=== PATIENT | female | born 1945 | race Caucasian/White ===

== ENCOUNTER 2020-09-08 09:36 | Day surgery (SDC) | payer MEDICARE, BC ==
[~2020-09-08] VITALS: Ht 165.1 cm; Wt 66.8 kg
[2020-09-08 10:14] LABS: BASOPHILS 0.7 % (0-2); EOSINOPHILS 2.6 % (0-7); HEMATOCRIT 32.8 % (36.0-48.0); HEMOGLOBIN 10.1 g/dL (12-16); IMMATURE GRANULOCYTES 0.2 % (0-5); LYMPHOCYTE ABS# 1.46 10x3/uL (1.18-3.74); LYMPHOCYTES 24.9 % (15-50); MCH 27.3 pg (26.0-34.0); MCHC 30.8 g/dL (31.0-37.0); MCV 88.6 fL (80.0-100.0); MEAN PLATELET VOLUME 12.5 fL (7.4-10.4); MONOCYTES 11.4 % (2-11); NEUTROPHIL ABS# 3.53 10x3/uL (1.56-6.13); NEUTROPHILS 60.2 % (40-80); PLATELET COUNT 204 10x3/uL (130-400); RDW 14.5 % (11.5-14.5); WBC 5.9 10x3/uL (4.8-10.8)
[2020-09-08] MEDS ORDERED: HYDROCHLOROTHIA25 MG PO (10:16)
[2020-09-08] MEDS ORDERED: TOPROL XL50 MG PO (10:16)
[2020-09-08] MEDS ORDERED: NORVASC5 MG PO (10:16)
[2020-09-08] MEDS ORDERED: SYNTHROID50 MCG PO (10:17)
[2020-09-08] MEDS ORDERED: CARAFATE1 G PO (10:17)
[2020-09-08] MEDS ORDERED: MIRALAX17 GM PO (10:18)
[2020-09-08] MEDS ORDERED: ZOFRAN ODT4 MG/UDTAB PO (10:18)
[2020-09-08] MEDS ORDERED: OMEPRAZOLE40 MG PO (10:18)
[2020-09-08] MEDS ORDERED: CETIRIZINE HCL5 M1 (10:19)
[2020-09-08 10:23] VITALS: BP 135/55; Ht 165.1 cm; Wt 66.8 kg
[2020-09-08 10:37] LABS: ALBUMIN 3.7 g/dL (3.4-5.0); ANION GAP 12.9 mmol/L (8-16); BILIRUBIN - TOTAL 0.9 mg/dL (0.2-1.3); CALCIUM 9.3 mg/dL (8.5-10.1); CARBON DIOXIDE 30.4 mmol/L (21.0-32.0); CREATININE - SERUM 0.8 mg/dL (0.6-1.3); POTASSIUM - SERUM 3.3 mmol/L (3.5-5.1); PROTEIN - SERUM 7.6 g/dL (6.4-8.2)
--- NOTE | 2020-09-08 12:40 | NUR ---
1215 PT IS NPO UNTIL AFTER PCXR RESULTS
--- NOTE | 2020-09-08 12:53 | NUR ---
1253 PT'S [employer] HAS BEEN CONTACTED WITH AN UPDATE.
--- NOTE | 2020-09-08 14:27 | NUR ---
1335 RESULTS FROM XRAY GIVEN TO DR TRAYLOR WHO STATES PT MAY DRINK AND BE DISCHARGED HOME. 1355 PT VOIDED WITHOUT DIFFICULTY. VSS. DENIES PAIN. TOLERATING A CUP OF WATER WITHOUT NAUSEA OR EMESIS. 1403 PT IS DRESSED. DISCHARGE INSTRUCTIONS REVIEWED [facility] PT WHO VOICES UNDERSTANDING OF INSTRUCTIONS. IV WAS DC'D AT 1349. CATHETER TIP INTACT. NO BLEEDING AT SITE. COBAN DRESSING APPLIED.
--- NOTE | 2020-10-26 16:10 | OP ---
PATIENT NAME: VALERIA GOODSON MEDICAL RECORD: [id number] :44 LOCATION:D.OPS ADMISSION DATE: SURGEON: ROSANA TRAYLOR MD DATE OF OPERATION: 09/08/2020 PREOPERATIVE DIAGNOSIS: Multiple gastric polyps, some of which appear to have bled recently. POSTOPERATIVE DIAGNOSIS: Multiple gastric polyps, some of which appear to have bled recently. PROCEDURE: 1. Esophagogastroduodenoscopy with antral and distal esophageal biopsies. The antral biopsies were to rule out H pylori. The distal esophageal biopsies were to rule out Jacobo esophagus. 2. Snare gastric polypectomies x6. 3. Hot biopsy forceps polypectomy x1. 4. Argon plasma coagulation ablation of 46 smaller gastric polyps, which did not require biopsy. SURGEON: Dr. Traylor. MANAGER CHANNEL: None. BLOOD LOSS: Minimal. ANESTHESIA: IV sedation. COMPLICATIONS: None. The risks, possible complications, and alternatives to the procedure were explained to the patient. She elects to proceed. OPERATIVE COURSE: The patient was conveyed to the endoscopy suite electively on 09/08/2020. IV sedation was induced by the anesthesia staff. A bite block was inserted. A gastroscope was inserted into the mouth. It was advanced easily into the hypopharynx. Esophagus was easily intubated as were the stomach and duodenum. Upon withdrawal, retroflexed and angulus views were obtained. Antral biopsies were obtained. Distal esophageal biopsies were obtained. I then performed snare polypectomy of the 6 largest pedunculated polyps. Some of these had what appeared to be adenomas tips on them. All were removed utilizing the coagulation setting. These were grasped with an endoscopic retrieval net and withdrawn out through the mouth. I then reintroduced the gastroscope into the mouth and advanced easily down the esophagus into the stomach. There was one more polyp that I wanted to remove and it was removed utilizing the hot biopsy forceps polypectomy technique. There were a number of smaller polyps, all smaller than a centimeter, and I felt that these could be adequately ablated with the argon plasma slab puller without biopsying them. Utilizing the gastrics heading in the forced mode, I performed a thorough ablation of all 46 polyps. I irrigated. There was no bleeding. The gastroscope was then withdrawn under direct vision. OPERATIVE REPORT [id number] VALERIA GOODSON I will see the patient back in my office in 2-3 weeks. I do not think we need to schedule another endoscopic procedure; however, if she develops anemia or melena, then that would be another indication for another upper endoscopy. TRANSINT:[id number] Voice Confirmation ID: [id number] DOCUMENT ID: [id number] ROSANA TRAYLOR MD at 1610 CC: [id number] DICTATION DATE: 10/25/20 1634 PAPER [employer]E MAKER: 10/26/20 0010 [facility] 09/08/[address] [id number]
== END 2020-09-08 14:03 | disposition home or self-care (01) ==
LOC: D.OPS 09:36
PROVIDERS: Anesthesiology; ATTEND Surgery
DX: K31.7 Polyp of stomach and duodenum (principal); I10 Essential (primary) hypertension; R11.0 Nausea; D50.0 Iron deficiency anemia secondary to blood loss (chronic); K21.9 Gastro-esophageal reflux disease without esophagitis